=== PATIENT | male | born 1965 | race Caucasian/White ===

== ENCOUNTER 2021-04-28 20:33 | Inpatient (IN) | payer SELFPAY ==
[~2021-04-28] VITALS: Ht 170.2 cm; Wt 90.3 kg
[~2021-04-28 20:33] MED LIST: ACYC200C10 PO
[2021-04-28 21:01] VITALS: BP 178/99
--- NOTE | 2021-04-28 21:01 | NUR ---
PATIENT BIB SELF FROM HOME C/O EYE PROBLEMS SINCE MAR. DOUBLE VISION, AND CROSS EYE. PATIENT WAS GOING TO THE ENVIRONMENTAL CONSERVATION OFFICER BUT WAS TOLD TO GO TO THE ER FOR POSSIBLE EMERGENCY. NO DEFECITS NOTED IN THE UPPER AND LOWER EXTREMITIES. SLIGHT LEFT FACIAL DROOP. NO MENTAL DELAYS NOTED. PATIENT DENIES GOING TO THE MD FOR 10 YEARS. PATIENT EXPLAINS THAT IT WAS THE EYES, THEN THE LEFT FACIAL NUMBNESS, AND TINGLING IN FINGERS. PATIENT AAOX4. PMH: DENIES NKA
--- NOTE | 2021-04-28 21:08 | NUR ---
PATIENT TO LOBBY
[2021-04-28 23:23] LABS: BASOPHILS # (AUTO) 0.1 K/uL (0.00-0.22); BASOPHILS % (AUTO) 0.9 % (0.0-2.0); EOSINOPHILS # (AUTO) 0.3 K/uL (0-0.4); HEMATOCRIT 47.2 % (36-52); HEMOGLOBIN 17.3 g/dL (12.0-18.0); LYMPHOCYTES # (AUTO) 1.8 K/uL (2.0-11.5); LYMPHOCYTES % (AUTO) 23.5 % (20.5-51.1); MEAN CORPUSCULAR HEMOGLOBIN 33 pg (27-31); MEAN CORPUSCULAR HGB CONC 37 g/dL (33-37); MEAN CORPUSCULAR VOLUME 91.2 fL (80-94); MONOCYTES # (AUTO) 0.5 K/uL (0.8-1.0); MONOCYTES % (AUTO) 6.5 % (1.7-9.3); NEUTROPHILS # (AUTO) 5.1 K/uL (1.8-7.7); NEUTROPHILS % (AUTO) 65.1 % (42.2-75.2); PLATELET COUNT (AUTO) 179 K/uL (140-450); RED BLOOD CELL COUNT(AUTO) 5.18 MIL/uL (4.20-6.10); RED CELL DISTRIBUTION WIDTH 12.7 % (11.6-13.7); WHITE BLOOD COUNT (AUTO) 7.8 K/uL (4.8-10.8)
[2021-04-29 00:09] LABS: PROTHROMBIN TIME 9.3 secs (10.8-13.4)
--- NOTE | 2021-04-29 00:56 | NUR ---
PATIENT MOVED TO [facility]
[2021-04-29 01:00] LABS: ANION GAP 17.1 (8-16); CARBON DIOXIDE 23.2 mmol/L (21-32); POTASSIUM 4.3 mmol/L (3.5-5.1)
[2021-04-29 01:01] LABS: ALBUMIN 3.7 g/dL (3.4-5.0); CREATININE 1.1 mg/dL (0.6-1.3); TOTAL BILIRUBIN 0.9 mg/dL (0.0-1.0)
[2021-04-29] MEDS ORDERED: NACL 0.9% 1,000 ML IV ONE (01:25)
[2021-04-29] MEDS ORDERED: INSULIN REGULAR, HUMAN 100 UNIT/ML VIAL IV ONE (02:10)
--- NOTE | 2021-04-29 02:28 | NUR ---
SWABS GIVEN TO COOPER PORTFOLIO MANAGER
[2021-04-29 02:48] LABS: APPEARANCE,URINE CLEAR (CLEAR); BILIRUBIN,URINE NEGATIVE (NEGATIVE); BLOOD, URINE NEGATIVE (NEGATIVE); COLOR,URINE YELLOW (YELLOW); LEUKOCYTE ESTERASE ,URINE NEGATIVE (NEGATIVE); NITRITE, URINE NEGATIVE (NEGATIVE); PH,URINE 5.5 (5.0-9.0); UGLUCOSE 3+ (NEGATIVE)
[2021-04-29 03:29] LABS: RBC,URINE 0-5 /HPF (0-5); WBC,URINE 0-5 /HPF (0-5)
--- NOTE | 2021-04-29 03:32 | NUR ---
PATIENT TO CT VIA W/C
--- NOTE | 2021-04-29 03:56 | NUR ---
PT BACK FROM CT TO ER CHAIR Dilcia GALINDO AT THIS TIME
[2021-04-29] MEDS ORDERED: ACETAMINOPHEN 325 MG TAB PO PRN (05:45)
[2021-04-29] MEDS ORDERED: MORPHINE SULFATE 2 MG/ML SYR IVP PRN (05:45)
[2021-04-29] MEDS ORDERED: HYDROcodone/APAP 5/325 MG 1 TAB TAB PO PRN (05:45)
[2021-04-29] MEDS ORDERED: DEXTROSE 50% 50 ML SYR IVP PRN (05:45)
[2021-04-29] MEDS ORDERED: ONDANSETRON 4 MG/2 ML VIAL IM/IVP PRN (05:45)
[2021-04-29] MEDS ORDERED: SODIUM PHOS / POTASSIUM PHOS 1 PKT PDR PO PRN (05:45)
[2021-04-29] MEDS ORDERED: DOCUSATE SODIUM 100 MG GELCAP PO PRN (05:45)
[2021-04-29] MEDS ORDERED: POTASSIUM CHLORIDE 10 MEQ TABER PO PRN (05:45)
[2021-04-29] MEDS ORDERED: NACL 0.9% 1,000 ML IV SCH (05:45)
[2021-04-29] MEDS ORDERED: INSULIN LISPRO SLIDING SCALE 100 UNITS/ML VIAL SUBQ PRN (05:45)
[2021-04-29] MEDS ORDERED: MAGNESIUM OXIDE 400 MG TAB PO PRN (05:45)
--- NOTE | 2021-04-29 07:23 | NUR ---
Pt report given to brown CAGLE. Transfer of care at this time.
[2021-04-29 07:39] LABS: BARBITURATE, URINE NEGATIVE ng/ml (NEG <=200)
[2021-04-29 07:40] LABS: BENZODIAZEPINE, URINE NEGATIVE ng/mL (NEG <=200); CANNABINOID, URINE NEGATIVE ng/mL (NEG <=50); COCAINE, URINE NEGATIVE ng/mL (NEG <=300); OPIATE, URINE NEGATIVE ng/mL (NEG <=2000); PHENCYCLIDINE SCREEN,URINE NEGATIVE ng/mL (NEG <=25)
--- NOTE | 2021-04-29 07:49 | NUR ---
ASSUMED CARE OF PATIENT AT THIS TIME
[2021-04-29] MEDS: BLOOD GLUCOSE MONITORING 1 DEV DEV FS SCH ×2 (08:25→11:43)
--- NOTE | 2021-04-29 08:32 | NUR ---
PT PROVIDED WITH BREAKFAST TRAY BEDSIDE
--- NOTE | 2021-04-29 08:50 | NUR ---
pt ambulated to restroom, gait steady
[2021-04-29] MEDS ORDERED: PANTOPRAZOLE 40 MG TABEC PO SCH (09:00)
[2021-04-29 11:18] LABS: MAGNESIUM 2.4 mg/dL (1.8-2.4); PHOSPHORUS 3.2 mg/dL (2.5-4.9)
[2021-04-29] MEDS ORDERED: lisinopriL 10 MG TAB PO SCH (11:55)
[2021-04-29] MEDS ORDERED: LISI-486 PO (11:55)
[2021-04-29] MEDS ORDERED: amLODIPine 5 MG TAB PO SCH (11:55)
[2021-04-29] MEDS ORDERED: AMLO5TAB PO (11:55)
[2021-04-29] MEDS ORDERED: METF-1022 PO (11:55)
[2021-04-29] MEDS ORDERED: ATOR40TA PO (11:57)
--- NOTE | 2021-04-29 12:57 | NUR ---
Patient discharged with v/s stable. Written and verbal after care instructions given and explained. Patient verbalized understanding. Ambulatory with steady gait. All questions addressed prior to discharge. Advised to follow up with PMD.
[2021-04-29 12:58] VITALS: BP 122/70
--- NOTE | 2021-04-29 16:45 | NUR ---
PATIENT HAS BEEN SCREENED AND CATEGORIZED MODERATE NUTRITION RISK. PATIENT WILL BE SEEN WITHIN 3-5 DAYS OF ADMISSION. LINDA CERVANTES RD
== END 2021-04-29 12:57 | disposition home or self-care (01) | DRG 639 ==
LOC: MED 20:33 → MMU 04-29 05:44
PROVIDERS: ADMIT Hospitalist; ATTEND Hospitalist
DX: E11.65 Type 2 diabetes mellitus with hyperglycemia (principal); H53.2 Diplopia; Z20.822 Contact with and (suspected) exposure to COVID-19
CPT/HCPCS: 36415; 70450; 71045; 80053; 80305; 81001; 82948; 83735; 84100; 84484; 85025; 85610; 85730; 93005; 96361; 96374; 99285; G0482; J1815; J7030; Q9967

== ENCOUNTER 2022-05-13 18:19 | Inpatient (IN) | payer OTHER ==
[~2022-05-13] VITALS: Ht 170.2 cm; Wt 91.2 kg
[~2022-05-13 18:19] MED LIST changes: -ACYC200C10 PO; +AMLO5TAB PO; +ATOR40TA PO; +LISI-486 PO; +METF-1253 PO
[2022-05-13 18:27] VITALS: BP 203/128
--- NOTE | 2022-05-13 18:34 | NUR ---
TO ER BED 7
[2022-05-13] MEDS ORDERED: NITROGLYCERIN 0.4 MG TAB SL ONE ×3 (18:50→19:20)
[2022-05-13] MEDS ORDERED: MORPHINE SULFATE 4 MG/ML SYR ONE (18:51)
[2022-05-13] MEDS ORDERED: ASPIRIN 81 MG TAB.CHEW ONE (18:51)
[2022-05-13] MEDS ORDERED: ASPIRIN 81 MG TAB.CHEW PO ONE ×2 (18:55→19:05)
--- NOTE | 2022-05-13 18:57 | NUR ---
57 YO M BIB SELF WITH C/C OF 10/10 NONRAD CHEST PAIN SINCE 1529, STATES HE WAS MOWING LAWN WHEN PAIN BEGAN TOOK A SEAT PAIN CONTINUED. PT STATES AROUND 1829 PAIN BECAME MORE CONSTANT, TOOK ASA BUT PAIN CONTINUED. +DIAPHORESIS.DENIES N/V. HX:ROSEANN ALTAMIRANO
[2022-05-13] MEDS ORDERED: MORPHINE SULFATE 4 MG/ML SYR IVP ONE (19:05)
[2022-05-13] MEDS ORDERED: NACL 0.9% 1,000 ML IV ONE (19:05)
--- NOTE | 2022-05-13 19:07 | NUR ---
NITRO PULLED, NONADMINISTERED, HELD PER JANELLE MARTIN.
--- NOTE | 2022-05-13 19:14 | NUR ---
VERBAL ORDER FOR NITRO SUBLINGUAL FROM GUS GRIFFITHS.
--- NOTE | 2022-05-13 19:16 | NUR ---
BP 177/108 HR HR 98, 1ST NITRO GIVEN.
[2022-05-13 19:21] LABS: BASOPHILS # (AUTO) 0.2 K/uL (0.00-0.22); BASOPHILS % (AUTO) 1.9 % (0.0-2.0); EOSINOPHILS # (AUTO) 0.1 K/uL (0-0.4); EOSINOPHILS % (AUTO) 0.4 % (0.0-4.0); HEMATOCRIT 42.4 % (36-52); LYMPHOCYTES % (AUTO) 7.9 % (20.5-51.1); MEAN CORPUSCULAR HEMOGLOBIN 37 pg (27-31); MEAN CORPUSCULAR HGB CONC 43 g/dL (33-37); MEAN CORPUSCULAR VOLUME 86.6 fL (80-94); MONOCYTES # (AUTO) 0.8 K/uL (0.8-1.0); MONOCYTES % (AUTO) 6.2 % (1.7-9.3); NEUTROPHILS # (AUTO) 10.9 K/uL (1.8-7.7); NEUTROPHILS % (AUTO) 83.6 % (42.2-75.2); PLATELET COUNT (AUTO) 204 K/uL (140-450); RED BLOOD CELL COUNT(AUTO) 4.89 MIL/uL (4.20-6.10)
--- NOTE | 2022-05-13 19:22 | NUR ---
BP 171/103 HR 97 2ND NITRO GIVEN
[2022-05-13 19:28] LABS: HEMOGLOBIN 18.2 g/dL (12.0-18.0)
--- NOTE | 2022-05-13 19:29 | NUR ---
BP 164/99 HR97 3RD NITRO GIVEN.
--- NOTE | 2022-05-13 19:31 | NUR ---
PT BELONGINGS DONE.
--- NOTE | 2022-05-13 19:36 | NUR ---
PT REPORTS CHEST PAIN CONTINUES BUT HAS DECREASED IN INTESITY, 10/11. JANELLE MARTIN MADE AWARE.
--- NOTE | 2022-05-13 20:00 | NUR ---
DENIES PAION AT THIS TIME. CM = SR WITHOUT ECTOPY. HAS BEEN VOIDING PER URINAL
[2022-05-13] MEDS ORDERED: MORPHINE SULFATE 2 MG/ML SYR IVP PRN ×2 (21:20)
[2022-05-13] MEDS ORDERED: ACETAMINOPHEN 325 MG TAB PO PRN (21:20)
[2022-05-13] MEDS ORDERED: ZOLPIDEM 5 MG TAB PO PRN (21:20)
[2022-05-13] MEDS ORDERED: LORazepam 1 MG TAB PO PRN (21:20)
[2022-05-13] MEDS ORDERED: NITROGLYCERIN 0.4 MG TAB SL PRN (21:20)
--- NOTE | 2022-05-13 22:40 | NUR ---
REPORT CALLED TO TSERING SAN
--- NOTE | 2022-05-13 22:47 | NUR ---
TO 120 B VIA SUZY ACCOMPANIED BY RN AND ERT
--- NOTE | 2022-05-13 22:52 | NUR ---
PATIENT WAS BROUGHT TO [facility]IT VIA RTOLLESON AAOX4. ON 2L NC. NO DISTRESS NOTED. RESPIRATION EVEN UNLABORED. AMBULATORY. SKIN INTACT. NO COMPLAINTS OF PAIN AT THIS TIME. CALL LIGHT WITHIN REACH. BED WHEELS LOCKED FOR SAFETY. MRSA SCREENING DONE. URINE COLLECTED FOR UA AND DRUG SCREEN. IV ACCESS TO THE RIGHT HAND AND LAC INTACT AND PATENT.
[2022-05-14 02:15] LABS: APPEARANCE,URINE CLEAR (CLEAR); BILIRUBIN,URINE NEGATIVE (NEGATIVE); BLOOD, URINE TRACE-I (NEGATIVE); COLOR,URINE YELLOW (YELLOW); LEUKOCYTE ESTERASE ,URINE NEGATIVE (NEGATIVE); NITRITE, URINE NEGATIVE (NEGATIVE); PH,URINE 5.5 (5.0-9.0); UGLUCOSE >=1000 (NEGATIVE)
[2022-05-14 02:25] LABS: RBC,URINE 0-5 /HPF (0-5); WBC,URINE 0-5 /HPF (0-5)
[2022-05-14 02:32] LABS: BARBITURATE, URINE NEGATIVE ng/ml (NEG <=200); BENZODIAZEPINE, URINE NEGATIVE ng/mL (NEG <=200); CANNABINOID, URINE NEGATIVE ng/mL (NEG <=50); COCAINE, URINE NEGATIVE ng/mL (NEG <=300); OPIATE, URINE POSITIVE ng/mL (NEG <=2000); PHENCYCLIDINE SCREEN,URINE NEGATIVE ng/mL (NEG <=25)
--- NOTE | 2022-05-14 02:50 | NUR ---
NOTIFIED MD OF SODIUM LEVELS FOR PATIENT IS 119. AWAITING ORDERS AND ACKNOWLEDGEMENT. [id number]
--- NOTE | 2022-05-14 03:12 | NUR ---
DR GUNDERSON WAS NOTIFIED OF THE CRITICAL LAB VALUE SODIUM LEVEL 119 WITH ORDER TO REPEAT SODIUM IN 6 HRS AND CAN PAGE QUALITY ENGINEERING MANAGER DOCTOR IF SODIUM IS DECREASING OR IF ANY NEUROLOGICAL CHANGES. CALLED LAB SPOKE TO YOSSI (LAB). WILL PUT BACK THE ORDER.
[2022-05-14 04:00] VITALS: BP 158/105
--- NOTE | 2022-05-14 04:38 | NUR ---
PATIENT BP-158/105 P-83. DR GUNEDRSON MADE AWARE, AWAITING FOR REPLY.
[2022-05-14] MEDS: SODIUM CHLORIDE FLUSH 10 ML SYR IVF SCH ×3 (05:31→20:29)
--- NOTE | 2022-05-14 07:19 | NUR ---
BEDSIDE REPORT GIVEN TO MORNING SHIFT NURSE RONALDO FOR CONTINUITY OF CARE. ENDORSED TO F/U WITH ANTIHYPERTENSIVE MEDS D/T PATIENT WITH HIGH BP.
--- NOTE | 2022-05-14 07:30 | NUR ---
RECIEVED PATIENT FROM EDI PROGRAMMER ANALYST NURSE.POC DISCUSSED.WAITING FOR MD REGARDING THE ADVICE OF BP MEDS.ALL SAFETY MEASURES IN PLACE.PATIENT IS SLEEPING IN BED.CHEST RISING AND FALLING EVENLY,WILL CONTINUE TO MONITOR.
[2022-05-14 08:00] VITALS: BP 160/101
--- NOTE | 2022-05-14 08:30 | NUR ---
PATRICK CABALLERO REGARDING HIGH BP,ADVICED TO GIVE PRN HYDRALAZINE 10 MG IV PUSH
[2022-05-14] MEDS: hydrALAZINE 20 MG/ML VIAL IVP PRN ×3 (08:40→17:00)
[2022-05-14 12:00] VITALS: BP 160/111
[2022-05-14 15:59] LABS: ASPARTATE AMINOTRANSFERASE 29 U/L (15-37); CHLORIDE 85 mmol/L (98-107); CREATININE 1.3 mg/dL (0.6-1.3); GFR ARICAN-AMERICAN 73 mL/min (>90); GLUCOSE 295 mg/dL (74-106); TOTAL BILIRUBIN 0.3 mg/dL (0.0-1.0); UREA NITROGEN, BLOOD 10 mg/dL (7-18)
[2022-05-14 16:00] VITALS: BP 160/111
--- NOTE | 2022-05-14 16:06 | NUR ---
DC PLANNING DC PLANNING ASSESSMENT COMPLETE SEE ASSESSMENT FOR DETAILS PT REPORTS TENTATIVE DC PLAN IS FOR PT TO RETURN HOME WITH SON PROVIDING TRANSPORATION , WHEN MEDICALLY STABLE Addendum: 05/14/22 at 1607 by Magalie CALERO Amended: Links added.
[2022-05-14 16:15] LABS: SODIUM SERUM 119 mmol/L (136-145)
--- NOTE | 2022-05-14 16:41 | NUR ---
REPORTED THE DOCTOR REGARDING THE CRITICAL VALUES,WHEN HE WAS THERE IN THE ROUNDS.
--- NOTE | 2022-05-14 16:46 | NUR ---
PATIENT HAS BEEN SCREENED AND CATEGORIZED MODERATE NUTRITION RISK. PATIENT WILL BE SEEN WITHIN 3-5 DAYS OF ADMISSION. REVIEWED BY LINDA CERVANTES RD
[2022-05-14 20:00] VITALS: BP 148/79
--- NOTE | 2022-05-14 22:00 | NUR ---
PATIENT AWAKE ALERT ON ROOM AIR. NO SOB NOTED. AMBULATED AROUND HIS ROOM. NEEDS ATTENDED AND MET. REMINDED PATIENT TO ASK FOR ASSISTANCE WHEN NEEDED. CALL LIGHT IN REACH.
--- NOTE | 2022-05-14 22:27 | NUR ---
PATIENT COMPLAINED OF HEADACHE, MEDICATED WITH TYLENOL PRN.
[2022-05-15] VITALS: BP 157/100
[2022-05-15] MEDS: hydrALAZINE 20 MG/ML VIAL IVP PRN (00:47)
[2022-05-15 04:00] VITALS: BP 134/94
[2022-05-15] MEDS: SODIUM CHLORIDE FLUSH 10 ML SYR IVF SCH ×3 (05:42→20:59)
--- NOTE | 2022-05-15 07:10 | NUR ---
RECEIVED REPORT FROM MEDICAL BILLER NURSE MENA FOR CONTINUITY OF CARE. PT STABLE AT THIS TIME
--- NOTE | 2022-05-15 07:18 | NUR ---
ENDORSED PATIENT TO MORNING SHIFT NURSE FOR CONTINUITY OF CARE. PLAN OF CARE DISCUSSED.
[2022-05-15 08:00] VITALS: BP 134/98
[2022-05-15] MEDS: ECOTRIN 81 MG TABEC PO SCH (08:47)
[2022-05-15] MEDS: lisinopriL 20 MG TAB PO SCH ×2 (08:48→20:59)
[2022-05-15] MEDS: ATORVASTATIN 20 MG TAB PO SCH (08:49)
[2022-05-15] MEDS: amLODIPine 5 MG TAB PO SCH (08:49)
[2022-05-15 12:00] VITALS: BP 126/82
[2022-05-15 16:00] VITALS: BP 140/94
--- NOTE | 2022-05-15 19:20 | NUR ---
ENDORSED PT TO TRANSMISSION SYSTEMS OPERATOR NURSE FOR CONTINUITY OF CARE. PT STABLE AT THIS TIME.
--- NOTE | 2022-05-15 19:30 | NUR ---
RECEIVED REPORT FROM DAY SHIFT NURSE ALETA FOR CONTINUITY OF CARE. PATIENT IS A&O X4. PATIENT IS ON ROOM AIR, BREATHING IS NORMAL WITH SYMMETRICAL RISE AND FALL OF CHEST. PATIENT'S IV IS A 20G LAC AND AN 18G R HAND; NO FLUIDS RUNNING AT THIS TIME. PATIENT IS AWAKE SITTING UP ON SIDE OF BED WITH FEET ON THE GROUND. PATIENT IS ALERT AND GAVE ME A FRIENDLY GREETING WHEN I INTRODUCED MYSELF TO HIM (SMILING AND SAYING HI). BED IS IN LOWEST POSITION WITH WHEELS LOCKED, CALL LIGHT IN PLACE. WILL CONTINUE TO OBSERVE PATIENT.
[2022-05-15 20:00] VITALS: BP 120/82
[2022-05-16] VITALS: BP 135/90
[2022-05-16 04:00] VITALS: BP 121/84
[2022-05-16 05:17] LABS: EOSINOPHILS # (AUTO) 0.1 K/uL (0-0.4)
[2022-05-16] MEDS: SODIUM CHLORIDE FLUSH 10 ML SYR IVF SCH ×3 (05:46→20:15)
[2022-05-16 05:48] LABS: BASOPHILS % (AUTO) 0.4 % (0.0-2.0); EOSINOPHILS % (AUTO) 0.9 % (0.0-4.0); HEMATOCRIT 43.8 % (36-52); HEMOGLOBIN 15.5 g/dL (12.0-18.0); LYMPHOCYTES # (AUTO) 2.4 K/uL (2.0-11.5); LYMPHOCYTES % (AUTO) 22.3 % (20.5-51.1); MEAN CORPUSCULAR HEMOGLOBIN 31 pg (27-31); MEAN CORPUSCULAR HGB CONC 35 g/dL (33-37); MEAN CORPUSCULAR VOLUME 88.5 fL (80-94); MONOCYTES # (AUTO) 0.9 K/uL (0.8-1.0); MONOCYTES % (AUTO) 8.2 % (1.7-9.3); NEUTROPHILS # (AUTO) 7.2 K/uL (1.8-7.7); NEUTROPHILS % (AUTO) 68.2 % (42.2-75.2); PLATELET COUNT (AUTO) 240 K/uL (140-450); RED BLOOD CELL COUNT(AUTO) 4.95 MIL/uL (4.20-6.10); RED CELL DISTRIBUTION WIDTH 16.3 % (11.6-13.7); WHITE BLOOD COUNT (AUTO) 10.6 K/uL (4.8-10.8)
--- NOTE | 2022-05-16 06:00 | NUR ---
PATIENT SLEPT THROUGHOUT THE NIGHT. PATIENT WAS COOPERATIVE UPON BEING WOKEN UP FOR VITALS. BOTH IV SITES HAVE BEEN FLUSHED AND ARE STILL PATENT. WILL CONTINUE TO OBSERVE PATIENT.
[2022-05-16 06:28] LABS: ALBUMIN 3.1 g/dL (3.4-5.0); ANION GAP 13.1 (8-16); CARBON DIOXIDE 24.7 mmol/L (21-32); CREATININE 1.1 mg/dL (0.6-1.3); POTASSIUM 3.8 mmol/L (3.5-5.1); TOTAL BILIRUBIN 0.9 mg/dL (0.0-1.0)
--- NOTE | 2022-05-16 07:10 | NUR ---
RECEIVED REPORT FROM CAPITAL PROJECT ENGINEER NURSE FOR CONTINUITY OF CARE. PT STABLE AT THIS TIME.
--- NOTE | 2022-05-16 07:47 | NUR ---
ENDORSED TO DAY SHIFT NURSE ALETA FOR CONTINUITY OF CARE. PATIENT IS STABLE.
[2022-05-16 08:00] VITALS: BP 127/69
[2022-05-16] MEDS: ATORVASTATIN 20 MG TAB PO SCH (09:32)
[2022-05-16] MEDS: amLODIPine 5 MG TAB PO SCH (09:33)
[2022-05-16] MEDS: ECOTRIN 81 MG TABEC PO SCH (09:33)
[2022-05-16] MEDS: lisinopriL 20 MG TAB PO SCH ×2 (09:33→20:15)
[2022-05-16 12:00] VITALS: BP 126/78
--- NOTE | 2022-05-16 12:32 | NUR ---
PT SLEEPING AT THIS TIME. NO SIGNS OF DISTRESS AT THIS TIME. WILL CONTINUE TO MONITOR.
[2022-05-16 13:20] LABS: PROTHROMBIN TIME 11.9 secs (10.8-13.4)
[2022-05-16] MEDS ORDERED: HEPARIN PER PHARMACY MC PRN (15:40)
[2022-05-16 16:00] VITALS: BP 121/74
--- NOTE | 2022-05-16 16:08 | NUR ---
ORDER FOR HLOC FOR CARDIAC CATH RECEIVED, ORDER AND CLINICAL PACKET FAXED TO [facility].
[2022-05-16] MEDS: hePARIN / DEXT 5% PREMIX 250 ML IV SCH (18:25)
--- NOTE | 2022-05-16 18:32 | NUR ---
ASSISTED PRIMARY RN ALETA WITH HEP DRIP BASED OFF APTT, 2 RN VERIFIED, PT EDUCATED AND STATES HE UNDERSTANDS. ALL SAFETY MEASURES IN PLACE, CALL LIGHT WITHIN REACH.
--- NOTE | 2022-05-16 19:15 | NUR ---
ENDORSED PT TO RESIDENTIAL CARE OFFICER NURSE FOR CONTINUITY OF CARE. PT STABLE AT THIS TIME
--- NOTE | 2022-05-16 19:30 | NUR ---
RECEIVED REPORT FROM DAY SHIFT NURSE ALETA FOR CONTINUITY OF CARE. PATIENT IS A&O X4. PATIENT IS ON ROOM AIR, BREATHING IS NORMAL WITH SYMMETRICAL RISE AND FALL OF CHEST. PATIENT'S IV IS A 20G LAC AND AN 18G R HAND; HEPARIN DRIP IS RUNNING AT 900 UNITS. PATIENT IS AWAKE SITTING UP ON SIDE OF BED WITH FEET ON THE GROUND. BED IS IN LOWEST POSITION WITH WHEELS LOCKED, CALL LIGHT IN PLACE. WILL CONTINUE TO OBSERVE PATIENT.
[2022-05-16 20:00] VITALS: BP 115/77
--- NOTE | 2022-05-16 21:30 | NUR ---
REVIEWED PROTOCOL FOR HEPARIN DRIP AND BLOOD DRAW. PPT SHOULD BE DRAWN 6HRS FROM START OF HEPARIN DRIP. HEPARIN DRIP WAS STARTED AT 1825, PUT ORDER IN FOR DRAW AT 0025. 2100 MEDICATIONS WERE GIVEN TO PATIENT SUCCESSFULLY WITHOUT ANY DIFFICULTIES IN SWALLOWING. BOTH IVS ARE PATENT. WILL CONTINUE TO OBSERVE PATIENT.
[2022-05-17] VITALS: BP 121/80
[2022-05-17] MEDS: hePARIN / DEXT 5% PREMIX 250 ML IV SCH ×3 (01:30→16:51)
--- NOTE | 2022-05-17 01:40 | NUR ---
RECEIVED NEW APTT RESULTS. APTT WAS 32.1; ACCORDING TO PROTOCOL PATIENT WAS GIVEN AN IVP OF 4600 UNITS OF HEPARIN AND IV WAS INCREASED 300 UNITS (CHANGED TO 1200 UNITS). WILL PUT IN ORDER FOR NEW BLOOD DRAW.
[2022-05-17 04:00] VITALS: BP 98/48
[2022-05-17] MEDS: SODIUM CHLORIDE FLUSH 10 ML SYR IVF SCH ×3 (05:55→21:17)
--- NOTE | 2022-05-17 06:28 | NUR ---
PATIENT'S IV HEPARIN STILL RUNNING AT 1200 UNITS. PATIENT HAS BEEN SLEEPING THROUGH THE NIGHT. BREATHING IS NORMAL WITH SYMMETRICAL RISE AND FALL OF CHEST. WILL CONTINUE TO OBSERVE PATIENT.
--- NOTE | 2022-05-17 07:08 | NUR ---
receive the patient from the film processing shift supervisor rn aox4 ambulatory . with admitting diagnosis of cahest pain, hypertension . will continue to monitor
--- NOTE | 2022-05-17 07:10 | NUR ---
[place] [address]
--- NOTE | 2022-05-17 07:42 | NUR ---
ENDORSED TO DAY SHIFT NURSE KRISTY FOR CONTINUITY OF CARE. PATIENT IS STABLE.
[2022-05-17 08:00] VITALS: BP 119/70
[2022-05-17] MEDS: ECOTRIN 81 MG TABEC PO SCH (08:44)
[2022-05-17] MEDS: ATORVASTATIN 20 MG TAB PO SCH (08:44)
[2022-05-17] MEDS: lisinopriL 20 MG TAB PO SCH ×2 (08:44→21:17)
[2022-05-17] MEDS: amLODIPine 5 MG TAB PO SCH (08:45)
--- NOTE | 2022-05-17 10:30 | NUR ---
the partial prothrombin time reslut was 42.6 . increase the heparin drip to 13.5 bolus 30 units .
--- NOTE | 2022-05-17 11:00 | NUR ---
DC PLANNING: PATIENT HAS AN ORDER TO BE TRANSFERRED TO [facility] FOR CARDIAC CATH. CALLED [facility] SPOKE WITH BOB STATED NEEDS PCR COVID TEST RESULT. CHECKED PCR STILL PENDING. [facility] FOLLOW UP. CM TO FOLLOW Addendum: 05/17/22 at 1630 by Irma Han RN DC PLANNING: CALLED [facility] TRANSFER MARICAO SPOKE WITH BOB RHOADES THE AUTH FROM [facility] [id number] AND FOR TRANSPORT [id number] ARRANGED TRANSPORT WILL CALL NOTIFIED [facility] SUP. CM TO FOLLOW
[2022-05-17] MEDS ORDERED: Heparin Per Pharmacy MC (11:26)
[2022-05-17] MEDS ORDERED: ATOR20TA40 PO (11:26)
[2022-05-17] MEDS ORDERED: AMLO-3 PO (11:26)
[2022-05-17] MEDS ORDERED: LISI20TA29 PO (11:26)
--- NOTE | 2022-05-17 14:40 | NUR ---
05/17/22 RD INITIAL ASSESSMENT COMPLETED PLEASE REFER TO NUTRITION ASSESSMENT UNDER CARE ACTIVITY FOR ESTIMATED NUTRITIONAL NEEDS. 1. RECOMMEND ADDING CCHO 60 GM TO CARDIAC DIET TOLERATED 2. PROVIDED NUTRITION EDUCATION WITH HANDOUTS FOR DM 3. RD TO FOLLOW-UP 7 DAYS, LOW RISK REVIEWED BY LINDA CERVANTES RD
[2022-05-17 16:00] VITALS: BP 98/74
--- NOTE | 2022-05-17 16:00 | NUR ---
after 6 hourse of change of rate of heparin . partial prothrombin time has to be collected
--- NOTE | 2022-05-17 19:30 | NUR ---
RECEIVED PATIENT IN BED RESTING COMFORTABLY. NO SOB. HEPARIN DRIP INFUSING 13.5 ML/HR. NO COMPLAINTS OF PAIN AT THIS TIME. PT IS AMBULATORY. CALL LIGHT WITHIN REACH.
[2022-05-17 20:16] VITALS: BP 110/77
--- NOTE | 2022-05-17 21:40 | NUR ---
PATIENT WAS DISCHARGED TO [facility] FOR CARDIAC CATHETER CLINICAL MASSAGE THERAPIST BY BANNER KRISTI JOYCE IN STABLE CONDITION.
[2022-05-18] MEDS ORDERED: METOPROLOL 25 MG TAB PO SCH (09:00)
== END 2022-05-17 21:40 | disposition short-term general hospital (02) | DRG 190 ==
LOC: MED 18:19 → MTU 21:27 → UNDODISIN 05-14 17:43
PROVIDERS: ADMIT Hospitalist; ATTEND Hospitalist
DX: I21.4 Non-ST elevation (NSTEMI) myocardial infarction (principal); E87.1 Hypo-osmolality and hyponatremia; R65.10 Systemic inflammatory response syndrome (SIRS) of non-infectious origin without acute organ dysfunction; E11.9 Type 2 diabetes mellitus without complications; I16.1 Hypertensive emergency; E78.5 Hyperlipidemia, unspecified; Z20.822 Contact with and (suspected) exposure to COVID-19; I10 Essential (primary) hypertension; Z79.899 Other long term (current) drug therapy
CPT/HCPCS: 36415; 71045; 80048; 80053; 80305; 81001; 82150; 83690; 83735; 83880; 84484; 85025; 85610; 85730; 87081; 87635-QW; 93005; 96361; 96374; 99285; J0360; J1644; J2270; Q0092